=== PATIENT | female | born 1960 | race Caucasian/White ===

== ENCOUNTER 2019-05-15 10:54 | Day surgery (SDC) | payer BC, OTHER ==
[2019-05-15] MEDS ORDERED: Depo-Medrol 40 MG/ML IM ONE (10:55)
[2019-05-15] MEDS ORDERED: Sodium Chloride 0.9(Preservative Free) 10 ML IJ ONE (10:55)
[2019-05-15] MEDS ORDERED: DIPRIVAN 200 MG/20 ML IV ONE (12:12)
[2019-05-15] MEDS ORDERED: Ketamine HCl 50 MG/ML ONE (12:13)
--- NOTE | 2019-05-15 13:19 | XRAY ---
Indication: Right L4-S1 transforaminal NADIYA. Intraoperative fluoroscopy was provided for 27 seconds. 2 digital spot images submitted for interpretation demonstrates posterior needle tips projecting over the expected course of the right L4 and L5 nerve roots. Small amount of contrast injected for needle tip placement. Correlate with intraoperative findings/report.
[2019-05-15] MEDS ORDERED: Lactated Ringers 1,000 ML IV ONE (13:28)
--- NOTE | 2019-05-15 13:31 | XRAY ---
27 seconds fluoroscopy time in surgery for right L4-S1 NADIYA.
== END 2019-05-15 12:41 | disposition home or self-care (01) ==
LOC: SDC-PAIN 10:54
PROVIDERS: ATTEND Psychiatry & Neurology Pain Medicine
DX: M54.16 Radiculopathy, lumbar region (principal); F32.9 Major depressive disorder, single episode, unspecified
CPT/HCPCS: 64483; 64484; 72020; 77002; J1030; J2704; Q9966

== ENCOUNTER 2019-11-27 11:37 | Day surgery (SDC) | payer OTHER ==
[2019-11-27] MEDS ORDERED: Sodium Chloride 0.9(Preservative Free) 10 ML IJ ONE (11:38)
[2019-11-27] MEDS ORDERED: Depo-Medrol 40 MG/ML IM ONE (11:38)
[2019-11-27] MEDS ORDERED: DIPRIVAN 200 MG/20 ML IV ONE (12:54)
[2019-11-27] MEDS ORDERED: Ketamine HCl 50 MG/ML ONE (12:54)
--- NOTE | 2019-11-27 15:36 | XRAY ---
Indication: Right L4-S1 transforaminal NADIYA. Intraoperative fluoroscopy was provided for 17 seconds. 2 digital spot images submitted for interpretation demonstrate posterior needle tips projecting over the expected course of the right L4 and L5 nerve roots. Small amount of contrast injected for needle tip placement. Correlate with intraoperative findings/report.
--- NOTE | 2019-11-27 15:43 | XRAY ---
17 seconds fluoroscopy time in surgery for right L4-S1 transforaminal NADIYA.
[2019-11-27] MEDS ORDERED: Lactated Ringers 1,000 ML IV ONE (15:55)
== END 2019-11-27 13:27 | disposition home or self-care (01) ==
LOC: SDC-PAIN 11:37
PROVIDERS: ATTEND Psychiatry & Neurology Pain Medicine
DX: M54.16 Radiculopathy, lumbar region (principal); F41.8 Other specified anxiety disorders; Z79.899 Other long term (current) drug therapy
CPT/HCPCS: 64483; 64484; 72100; 77003; J1030; J2704; Q9966

== ENCOUNTER 2020-01-01 14:56 | Day surgery (SDC) | payer OTHER ==
[2020-01-01] MEDS ORDERED: Marcaine 0.5% SDV 10 ML IJ ONE (14:57)
[2020-01-01] MEDS ORDERED: Xylocaine 1% Vial 30 ML PF IJ ONE (14:57)
[2020-01-01] MEDS ORDERED: Depo-Medrol 40 MG/ML IM ONE (14:57)
--- NOTE | 2020-01-01 16:30 | XRAY ---
Indication: Right knee injection. Intraoperative fluoroscopy was provided for 11 seconds. Single digital spot image submitted for interpretation demonstrates needle tip projecting over the right femur intercondylar notch. Small amount of contrast injected for needle tip placement. Correlate with intraoperative findings/report.
--- NOTE | 2020-01-01 16:32 | XRAY ---
Indication: Left knee injection. Intraoperative fluoroscopy was provided for 11 seconds. 2 digital spot images submitted for interpretation demonstrates needle tip projecting over the left femur intercondylar notch. Small amount of contrast injected for needle tip placement. Correlate with intraoperative findings/report.
--- NOTE | 2020-01-01 16:37 | XRAY ---
11 seconds of fluoroscopy was used in surgery for a right intra-articular knee injection.
--- NOTE | 2020-01-01 16:47 | XRAY ---
11 seconds of fluoroscopy was used in surgery for a left intra-articular knee injection.
== END 2020-01-01 16:05 | disposition home or self-care (01) ==
LOC: SDC-PAIN 14:56
PROVIDERS: ATTEND Psychiatry & Neurology Pain Medicine
DX: M17.11 Unilateral primary osteoarthritis, right knee (principal)
CPT/HCPCS: 20610; 73560; 77002; J1030; J2001; Q9966

== ENCOUNTER 2020-12-09 13:08 | Day surgery (SDC) | payer MEDICARE, OTHER ==
[2020-12-09] MEDS ORDERED: LIDOCAINE HCL 2% 100 MG/5 ML IJ ONE (13:09)
[2020-12-09] MEDS ORDERED: Ketamine HCl 50 MG/ML ONE (14:46)
[2020-12-09] MEDS ORDERED: DIPRIVAN 200 MG/20 ML IV ONE (14:46)
[2020-12-09] MEDS ORDERED: Lactated Ringers 1,000 ML IV ONE (15:05)
--- NOTE | 2020-12-09 16:47 | XRAY ---
Indication: Bilateral L4-S1 MBB. Intraoperative fluoroscopy was provided for 13 seconds. Single digital spot image submitted for interpretation demonstrates posterior needle tips projecting over the expected left and right L4-S1 nerve roots. Correlate with intraoperative findings/report.
--- NOTE | 2020-12-09 16:53 | XRAY ---
13 seconds of fluoroscopy was used during surgery for a bilateral L4-L5 and L5-S1 MBB.
== END 2020-12-09 15:10 | disposition home or self-care (01) ==
LOC: SDC-PAIN 13:08
PROVIDERS: ATTEND Psychiatry & Neurology Pain Medicine
DX: M47.816 Spondylosis without myelopathy or radiculopathy, lumbar region (principal); Z79.899 Other long term (current) drug therapy
CPT/HCPCS: 64493; 64494; 72020; 77002; J2704

== ENCOUNTER 2021-01-20 09:36 | Day surgery (SDC) | payer MEDICARE, OTHER ==
[2021-01-20] MEDS ORDERED: Depo-Medrol 40 MG/ML IM ONE (09:37)
[2021-01-20] MEDS ORDERED: Xylocaine 1% Vial 30 ML PF IJ ONE (09:37)
[2021-01-20] MEDS ORDERED: Sodium Chloride 0.9(Preservative Free) 10 ML IJ ONE (09:37)
[2021-01-20] MEDS ORDERED: Ketamine HCl 50 MG/ML ONE (11:15)
[2021-01-20] MEDS ORDERED: DIPRIVAN 200 MG/20 ML IV ONE (11:15)
--- NOTE | 2021-01-20 12:01 | XRAY ---
Indication: Right L4-S1 transforaminal NADIYA. Intraoperative fluoroscopy provided for 39 seconds. 3 digital spot images submitted for interpretation demonstrates posterior needle tips projecting over the expected right L4 and L5 nerve roots. Small amount of contrast injected for needle tip placement. Correlate with intraoperative findings/report.
--- NOTE | 2021-01-20 12:11 | XRAY ---
39 seconds fluoroscopy time in surgery for right L4-S1 transforaminal NADIYA.
[2021-01-20] MEDS ORDERED: Lactated Ringers 1,000 ML IV ONE (15:01)
== END 2021-01-20 11:47 | disposition home or self-care (01) ==
LOC: SDC-PAIN 09:36
PROVIDERS: ATTEND Psychiatry & Neurology Pain Medicine
DX: M54.16 Radiculopathy, lumbar region (principal); F41.9 Anxiety disorder, unspecified; F32.9 Major depressive disorder, single episode, unspecified; M19.90 Unspecified osteoarthritis, unspecified site; Z79.899 Other long term (current) drug therapy
CPT/HCPCS: 64483; 64484; 72100; 77003; J1030; J2001; J2704; Q9966

== ENCOUNTER 2021-04-28 12:23 | Day surgery (SDC) | payer MEDICARE, OTHER ==
[2021-04-28] MEDS ORDERED: Depo-Medrol 40 MG/ML IM ONE (12:24)
[2021-04-28] MEDS ORDERED: Sodium Chloride 0.9(Preservative Free) 10 ML IJ ONE (12:24)
[2021-04-28] MEDS ORDERED: Xylocaine 1% Vial 30 ML PF IJ ONE (12:24)
[2021-04-28] MEDS ORDERED: DIPRIVAN 200 MG/20 ML IV ONE (14:07)
[2021-04-28] MEDS ORDERED: Lactated Ringers 1,000 ML IV ONE (15:42)
--- NOTE | 2021-04-28 16:57 | XRAY ---
Indication: Caudal NADIYA. Intraoperative fluoroscopy provided for 17 seconds. Single digital spot image submitted for interpretation demonstrates posterior caudal needle tip projecting mid sacrum. Small amount of contrast injected for needle tip placement. Correlate with intraoperative findings/report.
--- NOTE | 2021-04-28 17:02 | XRAY ---
17 seconds fluoroscopy time in surgery for caudal NADIYA.
== END 2021-04-28 14:30 | disposition home or self-care (01) ==
LOC: SDC-PAIN 12:23
PROVIDERS: ATTEND Psychiatry & Neurology Pain Medicine
DX: M54.16 Radiculopathy, lumbar region (principal); F41.9 Anxiety disorder, unspecified; F32.9 Major depressive disorder, single episode, unspecified; M19.90 Unspecified osteoarthritis, unspecified site; Z79.899 Other long term (current) drug therapy
CPT/HCPCS: 62323; 72020; 77003; J1030; J2001; J2704; Q9966